=== PATIENT | male | born 1960 | race Caucasian/White ===

== ENCOUNTER → 2016-11-23 | Outpatient (CLI) | payer BC ==
[2016-11-23 11:58] LABS: EKG EKG PERFORMED
[2016-11-23 12:37] LABS: HCT 48.5 % (39.0-53.0); HGB 15.9 gm/dL (13.0-17.5); MCV 92.2 fL (80.0-100.0); RBC 5.26 m/uL (4.30-5.90); WBC (Perox) 7.29
[2016-11-23 12:38] LABS: Basophils # (A) 0.1 k/uL (0-0.2); Basophils % (A) 1 %; CH 31.5; CHCM 34.4; Eosinophils # (A) 0.1 k/uL (0-0.7); Eosinophils % (A) 1 %; Luc % (Auto) 1; Lymphocytes # (A) 1.7 k/uL (1.0-4.8); Lymphocytes % (A) 24 %; MCH 30.3 pg (25.0-35.0); MCHC 32.8 g/dL (31.0-37.0); Mean Platelet Volume 7.8; Monocytes # (A) 0.4 k/uL (0-1.0); Monocytes % (A) 6 %; Neutrophils # (A) 4.7 k/uL (1.3-7.7); Neutrophils % (A) 67 %; RDW 13.3 % (11.5-15.5)
[2016-11-23 12:46] LABS: Anion Gap 12 mmol/L; Carbon Dioxide 26 mmol/L (22-30); Chloride 104 mmol/L (98-107); Potassium 4.8 mmol/L (3.5-5.1); Sodium 142 mmol/L (137-145)
== END | disposition home or self-care (01) ==
LOC: LABPAT 11:37
PROVIDERS: ATTEND Orthopaedic Surgery
DX: Z01.810 Encounter for preprocedural cardiovascular examination (principal)
CPT/HCPCS: 80051; 85025; 93005

== ENCOUNTER 2016-12-01 05:45 | Day surgery (SDC) | payer BC ==
[2016-11-29 09:02] VITALS: BMI 28.4
--- NOTE | 2016-11-30 13:19 | HP ---
DATE OF ADMISSION: Surgery is 12/01/2016. Chaz Friare is a 56-year-old patient seen with progressive right shoulder pain. After having treatment options discussed, he elected to proceed with right shoulder arthroscopy. Consent was obtained. His past medical history is noncontributory. Past surgical history is herniorrhaphy. Daily medications are: 1. Aleve. 2. Aspirin. ALLERGIES: None. SOCIAL HISTORY: Patient denies tobacco use. PHYSICAL EVALUATION OF RIGHT SHOULDER: Flexion 150 degrees, abduction 130 degrees, external rotation is 50 degrees with pain and weakness. There is tenderness along the anterolateral acromion and rotator cuff insertion site as well as the acromioclavicular joint. The impingement sign positive at 90 degrees. Distal neurovascular exam is intact. Radiographs of the right shoulder revealed a type II anterior acromion, acromioclavicular joint osteoarthritis and cystic changes of the tuberosity. An MRI of the right shoulder revealed a partial rotator cuff tear, impingement, labral cyst and possible labral tear. IMPRESSION: Right shoulder impingement with rotator cuff tear and labral tear. PLAN: Right shoulder arthroscopy with subacromial decompression, possible arthroscopic rotator cuff repair, probable Enrique procedure and debridement.
[~2016-12-01 05:45] MED LIST: ceFAZolin 2 GM in SODIUM CHLORIDE 0.9% 100 ML IVPB ONE
[2016-12-01] MEDS ORDERED: LACTATED RINGERS 1,000 ML IV SCH (05:59)
[2016-12-01] MEDS ORDERED: LIDOCAINE 1% 20 ML VIAL (10MG/ML) FOR IV START INTRADERMA ONE (06:25)
[2016-12-01] MEDS ORDERED: MIDAZOLAM 2 MG/2 ML VIAL IV ONE (07:09)
[2016-12-01] MEDS ORDERED: fentaNYL (PF) 50 MCG/ML 2 ML AMP IV ONE (07:09)
[2016-12-01] MEDS ORDERED: MIDAZOLAM 2 MG/2 ML VIAL ONE (07:30)
[2016-12-01] MEDS ORDERED: ROPIVACAINE 5 MG/ML 30 ML VIAL ONE (07:30)
[2016-12-01] MEDS ORDERED: PROPOFOL 10 MG/ML 20 ML VIAL IV ONE (07:30)
[2016-12-01] MEDS ORDERED: LIDOCAINE 1% INJ 10MG/ML (20 ML MDV) ONE (07:30)
[2016-12-01] MEDS ORDERED: LACTATED RINGERS 1,000 ML BAG IV ONE (07:30)
[2016-12-01] MEDS ORDERED: SODIUM CHLORIDE 0.9% 100 ML BAG ONE (07:30)
[2016-12-01] MEDS ORDERED: LIDOCAINE 2%-EPI 1:100,000 20 ML VIAL ONE (07:30)
[2016-12-01] MEDS ORDERED: SUCCINYLCHOLINE CHLORIDE VIAL 200 MG/10 ML VIAL IV ONE (07:30)
[2016-12-01] MEDS ORDERED: fentaNYL (PF) 50 MCG/ML 2 ML AMP ONE (07:30)
[2016-12-01] MEDS ORDERED: ceFAZolin 1,000 MG VIAL ONE (07:30)
[2016-12-01] MEDS ORDERED: LACTATED RINGERS 1,000 ML IV ONE (08:13)
--- NOTE | 2016-12-01 08:18 | P.ONQ ---
Anesthesiology Proc Note - PNB - Peripheral Nerve Block Performed Right Interscalene Single Time Out Performed: Yes Indication: Acute Post-Operative Pain, Analgesia, Requested by physician Specifically requested for management of pain by : Corky Augustin Sedation Type: Sedate with meaningful contact maintained Preparation: Sterile Prep Position: Supine Catheter: None Needle Types: Other (see comment) (22 ga stimuplex @0.4mA) Needle Size: 50mm (2") Needle Gauge: Other (see comment) (22 ga stimuplex @0.4mA) Technique: Ultrasound Injectate: Other (see comment) (1%lidocaine/0.25%Marcaine/epi 5mcg/cc 30cc) Adjunct: Epinephrine (see comment for dilution ratio) (5 mcg/cc) Blood Aspirated: No Pain Paresthesia on Injection Noted: No Resistance on Injection: Normal Events: Uneventful and Well Tolerated
--- NOTE | 2016-12-01 09:09 | P.OP ---
Date of Procedure: 12/01/16 Preoperative Diagnosis: Right shoulder impingement Postoperative Diagnosis: 1. Right shoulder rotator cuff tear 2. Right shoulder impingement 3. Right shoulder acromioclavicular joint osteoarthritis 4. Right shoulder partial long head biceps tendon tear 5. Right shoulder superficial labral tear Procedure(s) Performed: 1. Right shoulder arthroscopic rotator cuff repair 2. Right shoulder arthroscopic subacromial decompression 3. Right shoulder arthroscopic Enrique procedure 4. Right shoulder arthroscopic biceps tenotomy 5. Right shoulder arthroscopic debridement labral tear Implants: 1-valeris peek anchor Anesthesia: GETA, regional (Interscalene block) Surgeon: Corky Augustin Fan Installer #1: Jovani Guaman Estimated Blood Loss (ml): 20 Pathology: none sent Condition: stable Disposition: PACU Indications for Procedure: 56-year-old patient seen with progressive right shoulder pain. After having treatment options discussed, he elected to proceed with right shoulder arthroscopy. Operative Findings: See description of procedure Description of Procedure: Patient underwent a shoulder block by department of anesthesia. The patient was then taken to the operative suite. The patient underwent a general anesthetic by the department of anesthesia. The patient was placed into a lateral position and secured. There was appropriate padding of the bony prominence. Right shoulder was then prepped and draped in normal sterile orthopedic fashion. We placed the extremity in 10 pounds of longitudinal traction. A posterior incision was now made for a posterior working portal site. The trocar and cannula were inserted into the glenohumeral joint. Arthroscopy was initiated. Spinal needle was now inserted anteriorly, to ascertain the anterior working portal site. An incision was now made in that area, a trocar was inserted followed by a probe. There was superficial tearing of the anterior labrum present. There were grade 1 chondromalacia changes of the glenoid fossa. There was some partial tearing long head biceps tendon. There was also some hyperemia of the long head biceps tendon. There were no loose bodies. An arthroscopic biceps tenotomy was performed. I debrided that superficial labral tear down to stable tissue. The residual labrum was probed and found to be stable. Utilizing the posterior working portal site, the trocar and cannula were inserted into the subacromial space. Arthroscopy initiated. I made an incision 2 fingerbreadths lateral to the acromion. I introduced my trocar followed by my ArthroCare ablator. I now began ablating thick subacromial bursal tissue, which exposed the undersurface of the anterior acromion. This was diminished subacromial space. There was a very prominent anterior acromion. A motorized bur was introduced and a subacromial decompression was performed. I also excised some osteophytes off the inferior aspect of the distal clavicle. The AC joint was visualized and noted to be fairly arthritic. Our motorized bur was introduced in the anterior portal site and a Enrique procedure was performed without difficulty, decompressing the AC joint nicely. I turned my attention to the rotator cuff. There was an obvious distal supraspinatus tendon tear. I debrided the margins getting down to stable rotator cuff tendon tissue. The tear was approximately 1.5-2 cm. I abraded the footprint with a motorized bur. I passed 2 everted mattress sutures. I then repaired the tendon utilizing one single anchor compressing the tenderness on the footprint very nicely. The residual suture limbs were clipped. The repair was probed and found to be stable. I now injected 1 mL of Allogen into the footprint repair site. Instruments now removed from the portal sites. All portal sites were approximated with nylon suture. Sterile dressings were applied followed by a shoulder immobilizer. Jovani THOMASON assisted with the procedure. The patient was awakened, transferred to a bed, and taken to recovery in stable condition.
[2016-12-01 09:14] VITALS: TEMP 96.2
[2016-12-01 10:38] VITALS: RESP 16
[2016-12-01 11:48] VITALS: BP 129/70; PULSE 71
== END 2016-12-01 11:46 | disposition home or self-care (01) ==
LOC: OR 05:45
PROVIDERS: ATTEND Orthopaedic Surgery
DX: M75.101 Unspecified rotator cuff tear or rupture of right shoulder, not specified as traumatic (principal); M75.41 Impingement syndrome of right shoulder; S46.111A Strain of muscle, fascia and tendon of long head of biceps, right arm, initial encounter; X58.XXXA Exposure to other specified factors, initial encounter; M19.011 Primary osteoarthritis, right shoulder; S43.491A Other sprain of right shoulder joint, initial encounter; Z87.891 Personal history of nicotine dependence; M94.211 Chondromalacia, right shoulder; Z79.82 Long term (current) use of aspirin; Z79.1 Long term (current) use of non-steroidal anti-inflammatories (NSAID)
CPT/HCPCS: 29827; 29828; 29826; 29824; 64415; C1713; C1765; J2250; J0330; J0690; J2001; J3010; J2795; J2704

== ENCOUNTER 2024-09-17 09:10 | Inpatient (IN) | payer BC ==
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
[2024-09-17 09:48] LABS: Basophils % (A) 0 %; Eosinophils % (A) 0 %; HCT 43.6 % (39.0-53.0); HGB 14.2 gm/dL (13.0-17.5); Lymphocytes # (A) 0.6 k/uL (1.0-4.8); Lymphocytes % (A) 6 %; MCHC 32.5 g/dL (31.0-37.0); MCV 95.5 fL (80.0-100.0); Mean Platelet Volume 8.1; Monocytes # (A) 0.2 k/uL (0-1.0); Monocytes % (A) 2 %; Neutrophils # (A) 8.9 k/uL (1.3-7.7); Neutrophils % (A) 91 %; Platelet Count 121 k/uL (150-450); RBC 4.57 m/uL (4.30-5.90); RDW 13.3 % (11.5-15.5); WBC 9.9 k/uL (3.8-10.6)
--- NOTE | 2024-09-17 09:55 | XR ---
EXAMINATION TYPE: XR chest 2V DATE OF EXAM: 09/17/2024 9:46 AM COMPARISON: Chest radiographs from 09/17/2024 CLINICAL INDICATION: Male, 64 years old with history of syncope; [facility] TECHNIQUE: XR chest 2V Frontal and lateral views of the chest. FINDINGS: Lungs/Pleura: There is no evidence of pleural effusion, focal consolidation, or pneumothorax. Pulmonary vascularity: Unremarkable. Heart/mediastinum: Cardiomediastinal silhouette is unremarkable. Musculoskeletal: No acute osseous pathology. Other findings: None IMPRESSION: No acute cardiopulmonary disease/process. [facility], , 09/17/2024 9:53 AM
[2024-09-17 10:04] LABS: ALT 27 U/L (4-49); AST 32 U/L (17-59); African American GFR (CKD) >90 (>60 ml/min/1.73 sqM); Albumin 4.1 g/dL (3.5-5.0); Alkaline Phosphatase 54 U/L (38-126); Anion Gap 8 mmol/L; Blood Urea Nitrogen 23 mg/dL (9-20); Calcium 8.6 mg/dL (8.4-10.2); Carbon Dioxide 24 mmol/L (22-30); Chloride 104 mmol/L (98-107); Glucose 145 mg/dL (74-99); Magnesium 1.9 mg/dL (1.6-2.3); Non-African American GFR(CKD) >90 (>60 ml/min/1.73 sqM); Sodium 136 mmol/L (137-145); Total Bilirubin 0.4 mg/dL (0.2-1.3); Total Protein 6.5 g/dL (6.3-8.2)
[2024-09-17 10:08] LABS: Partial Thromboplastin Time 20.9 sec (22.0-30.0); Prothrombin Time 11.1 sec (10.0-12.5)
--- NOTE | 2024-09-17 10:25 | CT ---
EXAMINATION TYPE: CT brain wo con CT DLP: 1153.4 mGycm, Automated exposure control for dose reduction was used. DATE OF EXAM: 09/17/2024 10:20 AM COMPARISON: None. CLINICAL INDICATION:Male, 64 years old with history of syncope, syncope TECHNIQUE: Brain: Multiple axial CT images of the brain were obtained without IV contrast. . Coronal and sagitta l reformats reviewed. FINDINGS: Brain: Extra-axial spaces: No abnormal extra-axial fluid collections. Ventricular system: Within normal limits Cerebral parenchyma: No acute intraparenchymal hemorrhage or mass effect. The prajapati-white junction is well differentiated. Scattered hypoattenuating areas are seen within the white matter. Cerebellum: Unremarkable. Mass effect: No evidence of midline shift. Intracranial vasculature: unremarkable Soft tissues: Normal. Calvarium/osseous structures: No depressed skull fracture. Paranasal sinuses and mastoid air cells: Mastoid air cells are clear. Prominent 3.0 cm mucous retenti on cyst within the inferior right maxillary sinus. Visualized orbits: Orbital contents are intact. IMPRESSION: 1. No acute intracranial process. 2. Nonspecific white matter changes, likely secondary to chronic small vessel ischemic disease. [facility], , 09/17/2024 10:23 AM
[2024-09-17] MEDS ORDERED: NALOXONE 0.4 MG/ML 1 ML VIAL IV PRN (11:16)
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
[2024-09-17 12:56] LABS: Amphetamine Screen,Urine Not Detected (NotDetected); Barbiturate Screen,Urine Not Detected (NotDetected); Benzodiazepines Screen,Urine Not Detected (NotDetected); Cocaine Screen,Urine Not Detected (NotDetected); Methadone Screen, Urine Not Detected (NotDetected); Opiate Screen,Urine Not Detected (NotDetected); Oxycodone Screen, Urine Not Detected (NotDetected); Phencyclidine Screen,Urine Not Detected (NotDetected); Tricyclic Antidepressant,Urine Not Detected (NotDetected); Urn Cannabinoid Scrn Not Detected (NotDetected)
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
[2024-09-18] MEDS: ATORVASTATIN 20 MG TAB PO SCH (08:15)
[2024-09-18 08:43] LABS: Basophils # (A) 0.01 X 10*3/uL (0.00-0.10); Basophils % (A) 0.1 %; Eosinophils # (A) 0.02 X 10*3/uL (0.04-0.35); Eosinophils % (A) 0.2 %; HCT 43.9 % (39.6-50.0); HGB 14.7 g/dL (13.0-17.0); MCH 31.1 pg (27.0-32.0); MCHC 33.5 g/dL (32.0-37.0); Monocytes # (A) 0.92 X 10*3/uL (0.20-1.00); Monocytes % (A) 8.6 %; NRBC Per 100 WBC 0 X 10*3/uL (0.00-0.01); Neutrophils # (A) 8.21 X 10*3/uL (1.80-7.70); Neutrophils % (A) 76.7 %; Platelet Count 149 X 10*3/uL (140-440); RBC 4.72 X 10*6/uL (4.40-5.60); RDW 13.2 % (11.5-14.5)
[2024-09-18 08:49] LABS: BUN/Creat Ratio 18.12 Ratio (12.00-20.00); Blood Urea Nitrogen 14.5 mg/dL (9.0-27.0); Calcium 9.1 mg/dL (8.7-10.3); Chloride 104 mmol/L (96-109); Glucose 107 mg/dL (70-110); Potassium 4.2 mmol/L (3.5-5.5); Sodium 138 mmol/L (135-145)
--- NOTE | 2024-09-18 10:35 | CA ---
Transthoracic Echo Report Name: Chaz Fraire Age: 64 Gender: M : 1960 Exam Date: 09/17/2024 13:34 Exam Location: [facility] Ht (in): 71 Wt (lb): 188 Ordering Physician: Serafin Calle DO Attending/Referring Phys: School Vocational Educator Kasia Poole RDCS Procedure CPT: Indications: Syncope Cardiac Hx: Technical Quality: Fair Contrast 1: Total Dose (mL): Contrast 2: Total Dose (mL): MEASUREMENTS (Male / Female) Normal Values 2D ECHO LV Diastolic Diameter PLAX 5.5 cm 4.2 - 5.9 / 3.9 - 5.3 cm LV Systolic Diameter PLAX 3.0 cm IVS Diastolic Thickness 1.1 cm 0.6 - 1.0 / 0.6 - 0.9 cm LVPW Diastolic Thickness 1.1 cm 0.6 - 1.0 / 0.6 - 0.9 cm LV Relative Wall Thickness 0.4 RV Internal Dim ED PLAX 3.9 cm LA Volume 75.0 cm??? 18 - 58 / 22 - 52 cm??? LA Volume Index 36.1 cm???/m??? 16 - 28 cm???/m??? M-MODE Aortic Root Diameter MM 3.4 cm LA Systolic Diameter MM 4.3 cm LA Ao Ratio MM 1.3 AV Cusp Separation MM 1.7 cm DOPPLER AV Peak Velocity 144.6 cm/s AV Peak Gradient 8.4 mmHg AV Mean Velocity 90.5 cm/s AV Mean Gradient 3.9 mmHg AV Velocity Time Integral 27.9 cm LVOT Peak Velocity 138.3 cm/s LVOT Peak Gradient 7.6 mmHg LVOT Velocity Time Integral 25.8 cm MV Area PHT 3.4 cm??? Mitral E Point Velocity 71.5 cm/s Mitral A Point Velocity 85.9 cm/s Mitral E to A Ratio 0.8 MV Deceleration Time 224.6 ms MV E' Velocity 10.3 cm/s Mitral E to MV E' Ratio 7.0 TR Peak Velocity 171.2 cm/s TR Peak Gradient 11.7 mmHg Right Ventricular Systolic Press 16.7 mmHg PV Peak Velocity 179.1 cm/s PV Peak Gradient 12.8 mmHg PV Mean Velocity 124.6 cm/s PV Mean Gradient 7.0 mmHg PV Velocity Time Integral 39.4 cm FINDINGS Left Ventricle Left ventricular cavity size normal. Mildly increased left ventricular wall thickness. Normal left ventricular systolic function with no obvious regional wall motion abnormalities. Left ventricular ejection fraction is estimated at 55 %. Grade 1 diastolic dysfunction. Right Ventricle Mild right ventricular dilatation. Right ventricular systolic pressure within normal limits. Right Atrium Normal right atrial size. Left Atrium Moderately increased left atrial volume. Mildly increased left atrial area. Mitral Valve Structurally normal mitral valve. No mitral stenosis. Mitral valve thickened. Mild mitral annular calcification. Mild mitral regurgitation. Aortic Valve Trileaflet aortic valve. No aortic valve stenosis or regurgitation. Tricuspid Valve Structurally normal tricuspid valve. Mild tricuspid regurgitation. Pulmonic Valve Structurally normal pulmonic valve. Pericardium No pericardial effusion. Aorta Normal size aortic root and proximal ascending aorta. CONCLUSIONS Normal LV function Previewed by: Dr. Mp Carrion MD (Electronically Signed) Final Date: 18 September 2024 10:34
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
--- NOTE | 2024-09-18 13:58 | US ---
EXAMINATION TYPE: US carotid duplex BILAT DATE OF EXAM: 09/18/2024 COMPARISON: CT brain CLINICAL INDICATION: Male, 64 years old with history of Syncope; Syncope per order. Hx hyperlipidemia , prior smoker. TECHNIQUE: Grayscale, color Doppler and spectral Doppler evaluation of the bilateral carotid systems and vertebral arteries.Indirect Doppler criteria was utilized. FINDINGS: EXAM MEASUREMENTS: RIGHT: Peak Systolic Velocity (PSV) cm/sec ----- Right CCA: 70.2 ----- Right ICA: 77.6 ----- Right ECA: 99.1 ICA/CCA ratio: 1.1 RIGHT: End Diastole cm/sec ----- Right CCA: 15.3 ----- Right ICA: 29.2 ----- Right ECA: 12.4 LEFT: Peak Systolic Velocity (PSV) cm/sec ----- Left CCA: 91.9 ----- Left ICA: 83.1 ----- Left ECA: 96.3 ICA/CCA ratio: 0.9 LEFT: End Diastole cm/sec ----- Left CCA: 20.4 ----- Left ICA: 33.6 ----- Left ECA: 20.4 VERTEBRALS (direction of flow): Right Vertebral: Antegrade Left Vertebral: Antegrade, ?Question elevated velocity Rhythm: Normal [employer] ARCHITECT NOTES: Intimal thickening seen bilateral carotid arteries. IMPRESSION: Right: Less than 50% stenosis of the carotid bifurcation. Normal (no stenosis)=ICA PSV < 125 cm/s: ra rojas < 2.0: ICA EDV<40 cm/s. Left: Less than 50% stenosis of the carotid bifurcation. Normal (no stenosis)=ICA PSV < 125 cm/s: rat io < 2.0: ICA EDV<40 cm/s. Criteria for Assigning % of Stenosis / Diameter reduction (Estimation based on the indirect measurements of the internal carotid artery velocities (ICA PSV). 1. Normal (no stenosis)=ICA PSV < 125 cm/s: ratio < 2.0: ICA EDV<40 cm/s. 2. Less than 50% stenosis=ICA PSV < 125 cm/s: ratio < 2.0: ICA EDV<40 cm/s. 3. 50 to 69% stenosis=ICA PSV of 125 to 230 cm/s: ration 2.0 ? 4.0: ICA EDV 40-100 cm/s. 4. Greater than 70% stenosis to near occlusion= ICA PSV > 230 cm/s: ratio > 4.0: ICA EDV > 100 cm/s. 5. Near occlusion= ICA PSV velocities may be low or undetectable: variable ratio and ICA EDV. 6. Total occlusion=unable to detect flow. [facility], , 09/18/2024 1:56 PM
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
[2024-09-18 15:56] LABS: Amphetamine Screen,Urine Not Detected (NotDetected); Barbiturate Screen,Urine Not Detected (NotDetected); Benzodiazepines Screen,Urine Not Detected (NotDetected); Cocaine Screen,Urine Not Detected (NotDetected); Methadone Screen, Urine Not Detected (NotDetected); Opiate Screen,Urine Not Detected (NotDetected); Oxycodone Screen, Urine Not Detected (NotDetected); Phencyclidine Screen,Urine Not Detected (NotDetected); Tricyclic Antidepressant,Urine Not Detected (NotDetected); Urn Cannabinoid Scrn Not Detected (NotDetected)
--- NOTE | 2024-09-19 01:24 | EEG ---
ELECTROENCEPHALOGRAM REPORT PREAMBLE: This is a 64-year-old male with syncopal episode. No history of seizures. EEG FINDINGS: This is a 21-channel digital EEG recorded with video component, utilizing 10/20 international system with referential and bipolar montages. Background consists of well developed, well regulated moderate voltage activity in 9 hertz alpha. Background is posterior dominant and reactive to eye opening and closing. There is frequent dysrhythmic focal slowing in delta and some theta range seen in the left temporal region. Intermittent left temporal sharp waves were seen. Photic driving response was not seen. Drowsiness was seen with appearance of bilaterally symmetric theta frequency rhythm. Stage 2 sleep was attained with presence of sleep spindles. No electrographic seizure was recorded. IMPRESSION: This is an abnormal EEG due to presence of intermittent focal slowing and epileptiform activity over the left temporal region. This is suggestive of focal cortical neuronal dysfunction with underlying cortical irritability and tendency for seizure. No electrographic seizure was recorded. Clinical correlation is recommended. ALEC / DENTON: [id number] / [id number]
--- NOTE | 2024-09-19 09:51 | PN ---
PROGRESS NOTE HISTORY OF PRESENT ILLNESS: A 64-year-old gentleman, who is admitted to hospital with syncope and had his drug screen was positive. He has not had any further episodes of syncope since that time, and had an echocardiogram that shows normal LV systolic function. He is currently awaiting an MRI. PHYSICAL EXAMINATION: GENERAL: Comfortable at rest. VITAL SIGNS: Blood pressure is elevated at 157/82, respiratory rate is 18. CHEST: Reveals good air entry bilaterally. HEART: Reveals first and second heart sounds. No gallop. ABDOMEN: Soft. EXTREMITIES: Did not reveal any edema. Peripheral pulses are felt. ASSESSMENT: 1. Syncope. 2. Confusion. 3. Hypertension. PLAN: I am going to add amlodipine 5 mg daily for better blood pressure control. No other cardiac workup from cardiac standpoint. MMODL / IJN: [id number] /
[2024-09-19] MEDS: LORazepam 2 MG/ML INJ IV STA (10:01)
[2024-09-19] MEDS: amLODIPine 5 MG TAB PO SCH (10:01)
--- NOTE | 2024-09-19 13:06 | MR ---
EXAMINATION TYPE: MR brain wo/w con DATE OF EXAM: 09/19/2024 11:47 AM COMPARISON: . 09/17/2024. CLINICAL INDICATION: Male, 64 years old with history of Syncope versus seizure; PHH, Syncope versus s eizure TECHNIQUE: Multi planar, multi sequence imaging was performed through the brain including: T1, T2, In version recovery, susceptibility weighted imaging and gradient echo imaging and Diffusion weighted im aging. The patient was then given intravenous contrast and multi planar, T1 fat-saturation images wer e obtained. IV Contrast: 9ml cc Gadavist FINDINGS: There is a peripherally enhancing mass thought to be within the left anterior temporal lobe gyrus measuring up to 15 x 13 x 12 mm. There is mild restricted diffusion thought to be present in t he periphery dominant lesion. Some central susceptibility weighted blooming artifact suggestive of he morrhage. Another area of vague enhancement just inferiorly to this series 3 image 7 of a measuring 7 mm. There is also some vague enlargement of the left temporal lobe gyrus series 601 image 40e and around the areas of enhancement as well as the hippocampus. The prajapati-white junctions, ventricular system, basal cisterns appear unremarkable. Diffusion-weighted imaging shows no evidence of restricted diffusion to suggest acute/subacute infarct. Intracranial ar terial flow voids are maintained. Midline structures show no abnormality. The bone marrow signal is within normal limits. Paranasal sinuses and mastoid air cells: ] Max exercise high T2 signal paranasal sinus disease/retent ion cyst. Visualized orbits: Orbital contents are intact. IMPRESSION: 1. Peripherally enhancing mass within the left temporal lobe with another area of vague enhancement more inferiorly. 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 Pos sible satellite nodule present. 2. No evidence acute/subacute infarct. 3. Some mild FLAIR prominence and hippocampus and left temporal lobe thought to be a combination of posterior activity in tumor infiltration. Findings communicated to Dr. Elise Galvez 09/19/2024 1:[address] Vaibhav Vital. [facility], , 09/19/2024 1:04 PM
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
[2024-09-19] MEDS: levETIRAcetam IV 500 MG/5 ML VIAL IVP STA (14:43)
[2024-09-19] MEDS: FAMOTIDINE 20 MG TAB PO SCH (14:44)
[2024-09-19] MEDS: levETIRAcetam 250 MG TAB PO SCH (22:15)
--- NOTE | 2024-09-20 10:08 | P.PN ---
Subjective Progress Note Date: 09/19/24 Patient was seen for a follow-up. Patient's daughter was also present. Patient just returned back from the MRI. Patient is sleeping at this time because he has received Ativan 2 mg IV prior to MRI. Patient's daughter mentions that prior to going for MRI, his mentation is completely back to normal. He was not complaining of any headache. No dizziness. No seizure type spells. Objective - Vital Signs Vital signs: Vital Signs Temp 98.2 F 09/19/24 07:44 Pulse 64 09/19/24 07:44 Resp 15 09/19/24 08:00 BP 157/81 09/19/24 07:44 Pulse Ox 99 09/19/24 08:37 FiO2 Intake & Output 09/18/24 09/19/24 09/19/24 18:59 06:59 18:59 Intake Total 1298 840 478 Output Total 400 Balance 898 840 478 Intake: Oral 1298 840 478 Output: Urine 400 Other: # Voids 2 2 - Exam Patient was seen twice today. At first, he was sleeping because of the effect of Ativan. About an hour later when I came back, patient was alert and awake, sitting in the bed in no distress. Denies any headache, denies any fever or chills. Mentation is back to normal. Examination nonfocal. - Labs CBC & Chem 7: 09/18/24 04:33 09/18/24 04:33 Assessment and Plan Assessment: * New onset seizure * Probable brain mass with vasogenic edema Plan: * Patient will undergo syncopal workup. * Carotid Doppler revealed less than 50% stenosis of the carotid bifurcations. Antegrade flow in the right vertebral artery. Left vertebral artery is antegrade, questionable elevated velocity. * Recommend starting aspirin 81 mg daily. * EEG was performed, which was abnormal due to intermittent focal slowing and sharp waves over the left temporal region. This suggestive of focal cortical neuronal dysfunction with underlying cortical irritability, and tendency for seizure. * Patient started on Keppra 1000 mg IV push x 1 dose followed by Keppra 750 mg p.o. twice daily. * MRI of the brain with and without contrast revealed peripherally enhancing mass within the left temporal lobe with another area of vague enhancement more inferiorly. 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 Possible satellite nodule present. No evidence of acute/subacute infarct. Some mild FLAIR prominence in hippocampus and left temporal lobe thought to be a combination of postictal activity or tumor infiltration. * I had initially considered about lumbar puncture to rule out herpes encephalitis, but after discussing with the radiologist, it appears patient has brain mass. Patient's mentation is otherwise clear and denies any headache, therefore does not appear herpes encephalitis. Lumbar puncture was canceled. * Recommend oncology consultation. Discussed with primary team. * 2D echo revealed normal left ventricular systolic function, with EF 55%. Moderately increased left atrial volume. * Continue Crestor 10 mg. * Patient was informed of [place] state law of no driving unless seizure-free for 6 months, climbing ladders, operating dangerous machinery or unsupervised swimming. * Repeat UDS, was negative.
--- NOTE | 2024-09-20 12:29 | CA ---
Exercise Stress Test Report Name: Chaz Fraire Exam Date: 09/20/2024 11:33 Exam Location: [place] Stress Ht (in): 71 Wt (lb): 184 BSA: 2.04 Ordering Phys: Briana Pineda Referring Phys: GEORGE Technologist: Manohar Clement Age: 64 Gender: M : 1960 Procedure CPT: Indications: syncope, assess for CI ICD-10 Codes: Patient History: HYPERCHOLESTEROLEMIA, FAMILY HX OF HEART DISEASE, PRIOR SMOKER Medications: Meds past 24 hrs: Pretest Chest Pain: STRESS TEST Tj Protocol Exercise Duration (min:sec): 10:[address] Depressions (mm): Angina Score: Benedict Score: Resting HR (bpm): 84 Peak HR (bpm): 156 Resting BP (mmHg): 139 / 84 Peak BP (mmHg): 212 / 79 MPHR: 158 Target HR: 134 % MPHR: 99 METS: 12.1 Total Dose: Peak Dose: Atropine: Double Product: 89841 BP Response: Stress Termination: TARGET HR REACHED/MAX EXERTION Stress Symptoms: NO SYMPTOMS Stress Summary: ECG ANALYSIS Resting ECG: Normal sinus rhythm normal axis normal intervals Stress ECG: Patient exercised on Tj protocol for 10 minutes achieving 11 METS 85% of predicted maximal heart rate without chest pain diagnostic ST segment depression CONCLUSIONS Good exercise tolerance Negative stress test by EKG criteria Dr. Mp Carrion MD (Electronically Signed) Final Date: 20 September 2024 12:28
[2024-09-20] MEDS: IOPAMIDOL CONTRAST (ORAL USE) VIAL PO PRN (13:05)
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
--- NOTE | 2024-09-20 15:15 | CT ---
EXAMINATION TYPE: CT ChestAbdPelvis w con CT DLP: 1004.6 mGycm, Automated exposure control for dose reduction was used. DATE OF EXAM: 09/20/2024 3:06 PM COMPARISON: Chest radiograph 09/17/2024 CLINICAL INDICATION:Male, 64 years old with history of brain mass, r/o met disease; PHH, brain mass, r/o met disease Technique: Multiple axial images of the chest, abdomen, and pelvis were obtained following the intrav enous administration of 100 mL Isovue-300. Oral contrast was administered. Two-dimensional coronal an d sagittal reconstructions were obtained. Findings: CHEST: LUNGS/ PLEURA: No pleural effusion, pneumothorax, focal consolidation. Minimal atelectasis within the lingula. Peripheral anterior right middle lobe 6 mm pulmonary nodule (series 207, image 33). AIRWAY: Patent and unremarkable.. HEART: Size within normal limits. No pericardial effusion. MEDIASTINUM: No evidence of adenopathy. VASCULATURE: No aortic aneurysm. MUSCULOSKELETAL: No acute osseous abnormalities. No aggressive osseous lesion. Mild multilevel degene rative disc disease. SOFT TISSUES/LYMPH NODES: Unremarkable. LOWER NECK: No significant findings. ABDOMEN: ABDOMEN LIVER: Unremarkable GALLBLADDER AND BILE DUCTS: Unremarkable. PANCREAS: Unremarkable. SPLEEN: Unremarkable. ADRENAL GLANDS: Unremarkable. KIDNEYS AND URETERS: No evidence of hydronephrosis or renal calculus. The kidneys enhance symmetrical ly. Contrast is demonstrated within both collecting systems on the delayed phase. PELVIS BLADDER: Unremarkable REPRODUCTIVE: Unremarkable. ABDOMEN & PELVIS STOMACH AND BOWEL: Stomach and duodenum are unremarkable. No focal bowel wall thickening or surroundi ng inflammatory changes. Sigmoid diverticulosis. Enteric contrast reaches the descending colon. No ev idence of bowel obstruction. PERITONEUM: No evidence of pneumoperitoneum or free fluid. VASCULATURE: No evidence of aortic aneurysm. MUSCULOSKELETAL: No acute osseous abnormalities. No aggressive osseous lesion. Degenerative disease m ost pronounced at L5-S1 with anterior and posterior osteophytes. LYMPH NODES: No evidence for lymphadenopathy. SOFT TISSUE/ABDOMINAL WALL: Postsurgical changes of the anterior abdominal wall from from prior repai r with mesh identified. Small fat filled right hernia. IMPRESSION: 1. No acute process within the chest, abdomen or pelvis. 2. Right middle lobe 6 mm pulmonary nodule. 3. No lymphadenopathy identified. 4. Sigmoid diverticulosis without evidence for acute diverticulitis. [facility], , 09/20/2024 3:12 PM
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
--- NOTE | 2024-09-22 00:56 | P.PN ---
Subjective Progress Note Date: 09/20/24 Patient was seen for a follow-up. Patient's daughter and patient's were present today. No further seizure type spells. After patient was seen yesterday, patient had an event, in which patient became somewhat confused, disoriented, with short loss of memory. Patient was given Keppra loading dose a fter worse and has not had any more spells. Objective - Vital Signs Vital signs: Vital Signs Temp 98 F 09/20/24 12:00 Pulse 100 09/20/24 12:00 Resp 16 09/20/24 12:00 BP 138/76 09/20/24 12:00 Pulse Ox 98 09/20/24 12:00 FiO2 Intake & Output 09/19/24 09/20/24 09/20/24 18:59 06:59 18:59 Intake Total 776 118 Balance 776 118 Weight 83.8 kg Intake: Oral 776 118 Other: Voiding Method Toilet # Voids 1 0 - Exam Patient's mental status, speech and visual black are normal. Cranial nerves are normal. Muscle strength is normal. No ataxia. Gait normal. - Labs CBC & Chem 7: 09/18/24 04:33 09/18/24 04:33 Assessment and Plan Assessment: * New onset seizure versus syncope * Abnormal EEG with evidence of epileptiform activity left temporal region. * Probable brain mass with vasogenic edema Plan: * Patient underwent a syncopal workup. * Carotid Doppler revealed less than 50% stenosis of the carotid bifurcations. Antegrade flow in the right vertebral artery. Left vertebral artery is antegrade, questionable elevated velocity. * EEG was performed, which was abnormal due to intermittent focal slowing and sharp waves over the left temporal region. This suggestive of focal cortical neuronal dysfunction with underlying cortical irritability, and tendency for seizure. * Patient started on Keppra 1000 mg IV push x 1 dose followed by Keppra 750 mg p.o. twice daily. Patient is tolerating Keppra well with no side effects. * MRI of the brain with and without contrast revealed peripherally enhancing mass within the left anterior temporal lobe measuring 15 x 13 x 12 mm, with another area of vague enhancement more inferiorly. 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 Possible satellite nodule present. No evidence of acute/subacute infarct. Some mild FLAIR prominence in hippocampus and left temporal lobe thought to be a combination of postictal activity or tumor infiltration. * Oncologyoncology input appreciated. There are recommending patient to be transferred to higher level of care for neurosurgical consultation. * Computed tomography scan of chest abdomen and pelvis revealed no acute process within the chest abdomen or pelvis. Right middle lobe 6 mm pulmonary nodule. No lymphadenopathy. * 2D echo revealed normal left ventricular systolic function, with EF 55%. Moderately increased left atrial volume. * Continue Crestor 10 mg. * Patient was informed of [place] state law of no driving unless seizure-free for 6 months, climbing ladders, operating dangerous machinery or unsupervised swimming. * Patient is awaiting transfer to higher level of care.
--- NOTE | 2024-09-22 01:00 | P.PN ---
Subjective Progress Note Date: 09/21/24 Patient was seen for a follow-up. Patient's daughter and patient's were present today. No further seizure type spells. Patient tolerating Keppra well with no side effects. Patient just awaiting transfer to higher level of care. Patient has been accepted at [facility], but the bed is not available. Objective - Vital Signs Vital signs: Vital Signs Temp 98.7 F 09/21/24 11:32 Pulse 75 09/21/24 11:32 Resp 16 09/21/24 11:32 BP 133/78 09/21/24 11:32 Pulse Ox 96 09/21/24 11:32 FiO2 Intake & Output 09/20/24 09/21/24 09/21/24 18:59 06:59 18:59 Intake Total 866 318 5863 Balance 279 662 0543 Weight 83.3 kg Intake: Oral 380 369 0305 Other: Voiding Method Toilet # Voids 1 2 - Exam Patient's mental status, speech and visual black are normal. Cranial nerves are normal. Muscle strength is normal. No ataxia. Gait normal. - Labs CBC & Chem 7: 09/18/24 04:33 09/18/24 04:33 Assessment and Plan Assessment: * Newly diagnosed brain mass. MRI revealed left medial temporal brain mass, 15 x 13 x 12 mm, with another area of vague enhancement more inferiorly. Findings concerning for a primary high-grade glioma with surrounding infiltra tion. * New onset seizure versus syncope * Abnormal EEG with evidence of epileptiform activity left temporal region. Plan: * Patient is clinically stable. Awaiting transfer to higher level of care for neurosurgical consultation. No further seizures reported. * Carotid Doppler revealed less than 50% stenosis of the carotid bifurcations. Antegrade flow in the right vertebral artery. Left vertebral artery is antegrade, questionable elevated velocity. * EEG was performed, which was abnormal due to intermittent focal slowing and sharp waves over the left temporal region. This suggestive of focal cortical neuronal dysfunction with underlying cortical irritability, and tendency for seizure. * Patient started on Keppra 1000 mg IV push x 1 dose followed by Keppra 750 mg p.o. twice daily. Patient is tolerating Keppra well with no side effects. * MRI of the brain with and without contrast revealed peripherally enhancing mass within the left anterior temporal lobe measuring 15 x 13 x 12 mm, with another area of vague enhancement more inferiorly. 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 Possible satellite nodule present. No evidence of acute/subacute infarct. Some mild FLAIR prominence in hippocampus and left temporal lobe thought to be a combination of postictal activity or tumor infiltration. * Oncologyoncology input appreciated. There are recommending patient to be transferred to higher level of care for neurosurgical consultation. * Computed tomography scan of chest abdomen and pelvis revealed no acute process within the chest abdomen or pelvis. Right middle lobe 6 mm pulmonary nodule. No lymphadenopathy. * 2D echo revealed normal left ventricular systolic function, with EF 55%. Moderately increased left atrial volume. * Continue Crestor 10 mg. * Patient was informed of [place] state law of no driving unless seizure-free for 6 months, climbing ladders, operating dangerous machinery or unsupervised swimming.
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
[2024-09-23 10:56] VITALS: RESP 17
--- NOTE | 2024-09-23 11:12 | P.PN ---
Subjective Progress Note Date: 09/22/24 Patient was seen for a follow-up. Patient's daughter and patient's were present today. No further seizure type spells. Patient tolerating Keppra well with no side effects. Patient just awaiting transfer to higher level of care. Patient has been accepted at [facility], but the bed is not available. Objective - Vital Signs Vital signs: Vital Signs Temp 97.7 F 09/22/24 08:10 Pulse 82 09/22/24 08:10 Resp 17 09/22/24 08:10 BP 131/71 09/22/24 08:10 Pulse Ox 99 09/22/24 08:10 FiO2 Intake & Output 09/21/24 09/22/24 09/22/24 18:59 06:59 18:59 Intake Total 1320 10 180 Balance 1320 10 180 Weight 84.4 kg Intake: IV 10 Invasive Line 2 10 Oral 1320 180 Other: Voiding Method Toilet Toilet # Voids 2 1 - Exam Patient's mental status, speech and visual black are normal. Cranial nerves are normal. Muscle strength is normal. No ataxia. Gait normal. - Labs CBC & Chem 7: 09/18/24 04:33 09/18/24 04:33 Assessment and Plan Assessment: * Newly diagnosed brain mass. MRI revealed left medial temporal brain mass, 15 x 13 x 12 mm, with another area of vague enhancement more inferiorly. Findings concerning for a primary high-grade glioma with surrounding infiltration. * New onset seizure versus syncope * Abnormal EEG with evidence of epileptiform activity left temporal region. Plan: * Patient is clinically stable. Awaiting transfer to higher level of care for neurosurgical consultation. No further seizures reported. * Carotid Doppler revealed less than 50% stenosis of the carotid bifurcations. Antegrade flow in the right vertebral artery. Left vertebral artery is antegrade, questionable elevated velocity. * EEG was performed, which was abnormal due to intermittent focal slowing and sharp waves over the left temporal region. This suggestive of focal cortical neuronal dysfunction with underlying cortical irritability, and tendency for seizure. * Patient started on Keppra 1000 mg IV push x 1 dose followed by Keppra 750 mg p.o. twice daily. Patient is tolerating Keppra well with no side effects. * MRI of the brain with and without contrast revealed peripherally enhancing mass within the left anterior temporal lobe measuring 15 x 13 x 12 mm, with another area of vague enhancement more inferiorly. 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 Possible satellite nodule present. No evidence of acute/subacute infarct. Some mild FLAIR pro minence in hippocampus and left temporal lobe thought to be a combination of postictal activity or tumor infiltration. * Oncologyoncology input appreciated. There are recommending patient to be transferred to higher level of care for neurosurgical consultation. * Computed tomography scan of chest abdomen and pelvis revealed no acute process within the chest abdomen or pelvis. Right middle lobe 6 mm pulmonary nodule. No lymphadenopathy. * 2D echo revealed normal left ventricular systolic function, with EF 55%. Moderately increased left atrial volume. * Continue Crestor 10 mg. * Patient was informed of [place] state law of no driving unless seizure-free for 6 months, climbing ladders, operating dangerous machinery or unsupervised swimming.
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
[2024-09-23 13:43] VITALS: BP 127/69; PULSE 70; TEMP 98.5
--- NOTE | 2024-09-24 02:10 | P.PN ---
Subjective Progress Note Date: 09/23/24 Patient was seen for a follow-up. Family members were not present. Patient denies headache, no dizziness, offers no complaints. States he is feeling fully healthy. No seizure type spe Objective - Vital Signs Vital signs: Vital Signs Temp 98.5 F 09/23/24 11:50 Pulse 70 09/23/24 14:00 Resp 17 09/23/24 14:00 BP 127/69 09/23/24 11:50 Pulse Ox 99 09/23/24 11:50 FiO2 Intake & Output 09/23/24 09/23/24 09/24/24 06:59 18:59 06:59 Intake Total 660 Balance 660 Weight Intake: IV Invasive Line 2 Oral 660 Other: Voiding Method Toilet # Voids 2 - Exam Patient's mental status, speech and visual black are normal. Cranial nerves are normal. Muscle strength is normal. No ataxia. Gait normal. - Labs CBC & Chem 7: 09/18/24 04:33 09/18/24 04:33 Assessment and Plan Assessment: * Newly diagnosed brain mass. MRI revealed left medial temporal brain mass, 15 x 13 x 12 mm, with another area of vague enhancement more inferiorly. Findings concerning for a primary high-grade glioma with surrounding infiltration. * New onset seizure versus syncope * Abnormal EEG with evidence of epileptiform activity left temporal region. Plan: * Patient is clinically stable. Awaiting transfer to higher level of care for neurosurgical consultation. No further seizures reported. * Carotid Doppler revealed less than 50% stenosis of the carotid bifurcations. Antegrade flow in the right vertebral artery. Left vertebral artery is antegrade, questionable elevated velocity. * EEG was performed, which was abnormal due to intermittent focal slowing and sharp waves over the left temporal region. This suggestive of focal cortical neuronal dysfunction with underlying cortical irritability, and tendency for seizure. * Patient started on Keppra 1000 mg IV push x 1 dose followed by Keppra 750 mg p.o. twice daily. Patient is tolerating Keppra well with no side effects. * MRI of the brain with and without contrast revealed peripherally enhancing mass within the left anterior temporal lobe measuring 15 x 13 x 12 mm, with another area of vague enhancement more inferiorly. 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 Possible satellite nodule present. No evidence of acute/subacute infarct. Some mild FLAIR prominence in hippocampus and left temporal lobe thought to be a combination of postictal activity or tumor infiltration. * Oncologyoncology input appreciated. There are recommending patient to be transferred to higher level of care for neurosurgical consultation. * Computed tomography scan of chest abdomen and pelvis revealed no acute process within the chest abdomen or pelvis. Right middle lobe 6 mm pulmonary nodule. No lymphadenopathy. * 2D echo revealed normal left ventricular systolic function, with EF 55%. Moderately increased left atrial volume. * Continue Crestor 10 mg. * Patient was informed of [place] state law of no driving unless seizure-free for 6 months, climbing ladders, operating dangerous machinery or unsupervised swimming. * [facility] accepted the patient, but no bed available. Patient now transfer to [facility]. Bed is available, patient being transferred.
== END 2024-09-23 14:46 | DRG 54 ==
LOC: EC 09:10 → SUPCPDRO 09:10 → 6NMEDSUR 11:16 → OBSVTOIN 09-19 13:58 → 3SCARD 09-19 18:04
PROVIDERS: ADMIT Internal Medicine; ATTEND Internal Medicine
DX: C71.2 Malignant neoplasm of temporal lobe (principal); G93.6 Cerebral edema; D69.6 Thrombocytopenia, unspecified; R56.9 Unspecified convulsions; I65.23 Occlusion and stenosis of bilateral carotid arteries; E78.5 Hyperlipidemia, unspecified; R91.1 Solitary pulmonary nodule; M19.90 Unspecified osteoarthritis, unspecified site; I10 Essential (primary) hypertension; Z79.82 Long term (current) use of aspirin; Z87.891 Personal history of nicotine dependence; Z79.899 Other long term (current) drug therapy
CPT/HCPCS: 36415; 70450; 70553; 71046; 71260; 74177; 80048; 80053; 80306; 83735; 84443; 84484; 85025; 85610; 85730; 93005; 93017; 93306; 93880; 94760; 95819; 96374; 96375; 99285

== ENCOUNTER → 2024-11-01 | Outpatient (CLI) | payer BC ==
--- NOTE | 2024-11-01 12:51 | MR ---
EXAMINATION TYPE: MR brain wo/w con DATE OF EXAM: 11/01/2024 10:39 AM COMPARISON: 09/19/2024. 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 The patient was then given intravenous contrast and multi planar, T1 fat-saturation images wer e obtained. IV Contrast: mL FINDINGS: Postsurgical changes of left temporal lobe with resection cavity measuring up to 51 x 41 x 42 mm. There is thin rim of peripheral enhancement around a majority of this which is somewhat irregu lar likely due to recent surgery. There is surrounding vasogenic edema. The prajapati-white junctions, ventricular system, basal cisterns appear unremarkable. Diffusion-weighted imaging shows no evidence of restricted diffusion to suggest acute/subacute infarct. Intracranial ar terial flow voids are maintained. Midline structures show no abnormality. Blooming artifact on the brothers rgical bed noted compatible with history and hemosiderin deposition. There is slight 11 mm rightward shift. The bone marrow signal is within normal limits. Paranasal sinuses and mastoid air cells: Mild paranasal sinus mucosal thickening. Visualized orbits: Orbital contents are intact. IMPRESSION: Postsurgical changes with thin rim of enhancement possibly secondary to healing changes. Continued at tention on follow-up imaging recommended. No new areas of enhancement No evidence for acute/subacute CVA. [facility], , 11/01/2024 12:49 PM
== END | disposition home or self-care (01) ==
LOC: RADMRIMAIN 09:06
PROVIDERS: ATTEND Radiology Radiation Oncology
DX: C71.2 Malignant neoplasm of temporal lobe (principal)
CPT/HCPCS: 70553; A9585